=== PATIENT | female | born 1960 | race Caucasian/White ===

== ENCOUNTER 2017-05-19 06:50 | Emergency (ER) | payer OTHER ==
[~2017-05-19] VITALS: Ht 165.1 cm; Wt 95.0 kg
[~2017-05-19 06:50] MED LIST: ATEN-42; BENA20TA77; CETI10TA; METF100C2; PROAIR; PROMETHAZINE WITH CODEINE
[2017-05-19] MEDS ORDERED: GUAIFENESIN/CODEINE 100-10MG/5ML UDC PO ONE (08:30)
[2017-05-19] MEDS ORDERED: ALBUTEROL (0.5%) 2.5MG/0.5ML NEB HHN ONE (08:30)
[2017-05-19] MEDS ORDERED: KETOROLAC 60MG/2ML VIAL IM ONE (08:30)
[2017-05-19] MEDS ORDERED: ALBUTEROL (0.083%) 2.5MG/3ML NEB ONE (09:36)
[2017-05-19 10:15] VITALS: BP 169/106
== END 2017-05-19 10:58 | disposition home or self-care (01) ==
LOC: ER 07:31
DX: R06.02 Shortness of breath (principal); R05 Cough; I10 Essential (primary) hypertension; E78.00 Pure hypercholesterolemia, unspecified; E11.9 Type 2 diabetes mellitus without complications
CPT/HCPCS: 71046; 82962; 94640; 96372; 99284; J1885; J7611

== ENCOUNTER 2018-06-07 09:23 | Emergency (ER) | payer OTHER ==
[~2018-06-07] VITALS: Ht 152.4 cm; Wt 102.0 kg
[~2018-06-07 09:23] MED LIST changes: +AMLO10TA80 PO; -ATEN-42; +ATEN100T PO; -BENA20TA77; +BENA40TA9 PO; -CETI10TA; +FURO-151 PO; +MELO-106 PO; +METF-816 PO; -METF100C2; +MONT10TA24 PO; +OMEP40CA34 PO; +PIOG15TA23 PO; +PIRO20CA2 PO; -PROAIR; -PROMETHAZINE WITH CODEINE; +RANI150C12 PO; +SIMV20TA6 PO; +ZOLP10TA2 PO
[2018-06-07] MEDS ORDERED: ALBUTEROL (0.5%) 2.5MG/0.5ML NEB HHN ONE (10:00)
[2018-06-07] MEDS ORDERED: KETOROLAC 60MG/2ML VIAL IM ONE (10:00)
[2018-06-07 10:11] VITALS: BP 189/91
== END 2018-06-07 11:59 | disposition home or self-care (01) ==
LOC: ER 09:31
DX: J45.901 Unspecified asthma with (acute) exacerbation (principal); M17.0 Bilateral primary osteoarthritis of knee; M25.462 Effusion, left knee; I10 Essential (primary) hypertension; E11.9 Type 2 diabetes mellitus without complications; Z88.6 Allergy status to analgesic agent; Z79.899 Other long term (current) drug therapy
CPT/HCPCS: 73562; 94640; 96372; 99283; J1885; J7611

== ENCOUNTER 2019-05-19 08:31 | Emergency (ER) | payer OTHER ==
[~2019-05-19] VITALS: Ht 162.6 cm; Wt 95.0 kg
[~2019-05-19 08:31] MED LIST changes: +OMEP40CA12 PO; -OMEP40CA34 PO; -PIOG15TA23 PO; +PIOG15TA68 PO; +SIMV-43 PO; -SIMV20TA6 PO
[2019-05-19 08:42] VITALS: BP 165/86
[2019-05-19] MEDS ORDERED: ALBUTEROL (0.083%) 2.5MG/3ML NEB HHN STA (09:13)
[2019-05-19] MEDS ORDERED: IPRATROPIUM BROMIDE (0.02%) 0.5MG/2.5ML NEB HHN STA (09:13)
== END 2019-05-19 11:34 | disposition home or self-care (01) ==
LOC: ER 08:31
DX: J10.1 Influenza due to other identified influenza virus with other respiratory manifestations (principal); J20.9 Acute bronchitis, unspecified; E11.9 Type 2 diabetes mellitus without complications; I10 Essential (primary) hypertension; Z79.899 Other long term (current) drug therapy; Z79.84 Long term (current) use of oral hypoglycemic drugs
CPT/HCPCS: 94640; 99283; J7611; Z7610

== ENCOUNTER 2020-10-20 10:44 | Emergency (ER) | payer OTHER ==
[~2020-10-20] VITALS: Ht 154.9 cm; Wt 85.0 kg
[~2020-10-20 10:44] MED LIST changes: -METF-816 PO; +METF-874 PO; -MONT10TA24 PO; +MONT10TA32 PO
[2020-10-20] MEDS ORDERED: ONDANSETRON HCL 4MG/2ML INJ IV STA (11:49)
[2020-10-20] MEDS ORDERED: SODIUM CHLORIDE 0.9% 1,000 ML IV ONE (12:00)
[2020-10-20 13:19] LABS: BASOPHILS % 0.3 % (0.0-2.0); EOSINOPHILS % 1.3 % (0.0-5.0); HEMATOCRIT. 39.3 % (36.0-48.0); HEMOGLOBIN. 13.2 g/dL (12.0-16.0); LYMPHOCYTES % 25.6 % (20.0-50.0); MEAN CORPUSCULAR HEMOGLOBIN 28.3 pg (28.0-32.0); MEAN CORPUSCULAR VOLUME 84.7 fL (81.0-99.0); MONOCYTES % 7.9 % (2.0-8.0); NEUTROPHILS % 64.9 % (40.0-76.0); PLATELET 230 x1000/uL (130-400); RED BLOOD CELL COUNT 4.65 mill/uL (4.2-5.4); RED CELL DISTRIBUTION WIDTH 14.2 % (11.6-14.6)
[2020-10-20 13:27] LABS: CHLORIDE 105 mEq/L (98-107)
[2020-10-20 13:32] LABS: ETHANOL BLOOD < 10 mg/dL
[2020-10-20] MEDS ORDERED: IOHEXOL-300 100 ML BOTTLE ONE (15:19)
[2020-10-20] MEDS ORDERED: METOCLOPRAMIDE HCL 5MG TABLET PO NR (17:15)
[2020-10-20 17:22] LABS: CLARITY URINE CLEAR (CLEAR); COLOR URINE YELLOW (YELLOW); KETONES URINE NEGATIVE (NEGATIVE); LEUKOCYTE ESTERASE URINE NEGATIVE (NEGATIVE); NITRITE URINE NEGATIVE (NEGATIVE); OCCULT BLOOD URINE NEGATIVE (NEGATIVE); PROTEIN URINE NEGATIVE (NEGATIVE); UROBILINOGEN URINE 0.2 E.U./dL (0.2-1.0)
[2020-10-20 17:34] LABS: *AMPHETAMINES SCREEN URINE NEGATIVE (NEGATIVE); *BARBITURATES SCREEN URINE NEGATIVE (NEGATIVE); *BENZODIAZEPINES SCREEN URINE NEGATIVE (NEGATIVE); CANNABINOID URINE SCREEN NEGATIVE (NEGATIVE); METHADONE URINE SCREEN NEGATIVE (NEGATIVE); OPIATES URINE SCREEN NEGATIVE (NEGATIVE); PHENCYCLIDINE URINE SCREEN NEGATIVE (NEGATIVE)
[2020-10-20 17:36] LABS: *COCAINE SCREEN URINE NEGATIVE (NEGATIVE)
[2020-10-20 19:30] VITALS: BP 156/81
== END 2020-10-20 19:40 | disposition home or self-care (01) ==
LOC: ER 10:44
DX: R10.11 Right upper quadrant pain (principal); R11.0 Nausea; E11.9 Type 2 diabetes mellitus without complications; I10 Essential (primary) hypertension; Z98.890 Other specified postprocedural states; Z79.899 Other long term (current) drug therapy
CPT/HCPCS: 36415; 71045; 74177; 80053; 80305; 80320; 81003; 83605; 83690; 83880; 84484; 85025; 93005; 96361; 96374; 99285; J2405; J7030; J8597; Q9967; G0480

== ENCOUNTER 2021-08-30 12:13 | Emergency (ER) | payer OTHER ==
[~2021-08-30] VITALS: Ht 157.5 cm; Wt 95.0 kg
[~2021-08-30 12:13] MED LIST changes: -BENA40TA9 PO; +BENA40TA91 PO; +MONT-39 PO; -MONT10TA32 PO; -OMEP40CA12 PO; +OMEP40CA20 PO
[2021-08-30] MEDS ORDERED: IPRATROPIUM BROMIDE (0.02%) 0.5MG/2.5ML NEB HHN STA (12:21)
[2021-08-30] MEDS ORDERED: ALBUTEROL (0.083%) 2.5MG/3ML NEB HHN SCH (12:30)
[2021-08-30 13:04] LABS: BASOPHILS % 0.6 % (0.0-2.0); EOSINOPHILS % 2.1 % (0.0-5.0); HEMATOCRIT. 39.3 % (36.0-48.0); HEMOGLOBIN. 13.3 g/dL (12.0-16.0); LYMPHOCYTES % 25.6 % (20.0-50.0); MEAN CORPUSCULAR HEMOGLOBIN 28.1 pg (28.0-32.0); MEAN CORPUSCULAR VOLUME 83.2 fL (81.0-99.0); MEAN PLATELET VOLUME 7.4 fl (7.4-10.4); MONOCYTES % 6.9 % (2.0-8.0); NEUTROPHILS % 64.8 % (40.0-76.0); PLATELET 277 x1000/uL (130-400); RED BLOOD CELL COUNT 4.73 mill/uL (4.2-5.4); RED CELL DISTRIBUTION WIDTH 14.5 % (11.6-14.6)
[2021-08-30 13:10] LABS: CHLORIDE 106 mEq/L (98-107)
[2021-08-30] MEDS ORDERED: IPRATROPIUM BROMIDE (0.02%) 0.5MG/2.5ML NEB HHN NR (16:15)
[2021-08-30] MEDS: ALBUTEROL (0.083%) 2.5MG/3ML NEB HHN SCH ×3 (16:20→16:56)
[2021-08-30] MEDS ORDERED: MONT10TA21 MT (20:19)
[2021-08-30 20:27] VITALS: BP 138/76
== END 2021-08-30 20:29 | disposition home or self-care (01) ==
LOC: ER 12:13
DX: J45.901 Unspecified asthma with (acute) exacerbation (principal)
CPT/HCPCS: 36415; 71045; 80053; 83880; 84484; 85025; 93005; 94640; 99285; Z7610

== ENCOUNTER 2022-01-29 08:43 | Emergency (ER) | payer OTHER ==
[~2022-01-29] VITALS: Ht 165.1 cm; Wt 100.0 kg
[~2022-01-29 08:43] MED LIST changes: +MONT10TA21 MT
[2022-01-29 08:56] VITALS: BP 173/80
[2022-01-29] MEDS ORDERED: NAP5EC MT (09:53)
== END 2022-01-29 10:37 | disposition home or self-care (01) ==
LOC: ER 08:43
DX: R51.9 Headache, unspecified (principal); I10 Essential (primary) hypertension; E11.9 Type 2 diabetes mellitus without complications; Z79.899 Other long term (current) drug therapy; Z79.84 Long term (current) use of oral hypoglycemic drugs
CPT/HCPCS: 99282